=== PATIENT | female | born 1955 | race Caucasian/White ===

== ENCOUNTER 2018-06-11 17:48 | Emergency (ER) | payer BC ==
--- NOTE | 2018-06-11 17:57 | EDM.PDOC ---
ED HPI GENERAL MEDICAL PROBLEM - General Stated Complaint: CHEST DISCOMFORT Time Seen by Provider: 06/11/18 17:48 Source of Information: Reports: Patient, Family History Limitations: Reports: No Limitations - History of Present Illness INITIAL COMMENTS - FREE TEXT/NARRATIVE: 62 y.o.w.f with no previous cardiac Hx was seen in the walk in clinic and transferred to the ed because of C/O chest pain. ECG taken at the clinic showed NSR with out any acte ST/T wave changes. On arrival, the pt c/o of a burning chest pain which goes up to her throat and is worse in supine position. Holding the breath did not make the pain better. Last food intake was at 11 am. Last lipid level check was several years ago and found to be nl. No N/V/D No SOB. However, the patient dizzy in the morning and the pain was radiating to both shoulders radiating nathen to both arms. Those symptoms were lasting several hours , then subsided spontaneously after which the patient decided to go to the walk in clinic. On arrival to the ed, the pt had nonradiating chest pain from her upper abd. to her throat. No diaphoresis!. No SOB, no dizziness. No other acute medical issues. BP 169/79 RR 18 Pulse ox 99% on RA Pulse 81 Temp 36.4 Onset Date: 06/05/18 Onset Time: 06:00 Duration: Hour(s):, Intermittent Location: Reports: Chest, Abdomen Quality: Reports: Burning Severity: Moderate Improves with: Reports: None Worsens with: Reports: None Context: Reports: Other Associated Symptoms: Reports: Chest Pain, Other (felt light headed) Chest Pain Score (Numeric/FACES): 4 - Related Data Allergies Allergy/AdvReac Type Severity Reaction Status Date / Time esomeprazole magnesium Allergy Hives Verified 06/11/18 18:08 [From Nexium] Sulfa (Sulfonamide Allergy Anaphylactic Verified 06/11/18 18:08 Antibiotics) Shock Home Meds: Home Meds Levothyroxine [Synthroid] 88 mcg PO ACBREAKFAST 05/09/15 [History] Past Medical History - Past Health History Medical/Surgical History: Denies Medical/Surgical History Dermatologic History: Reports: Psoriasis - Infectious Disease History Infectious Disease History: Reports: Chicken Pox, Shingles - Past Surgical History HEENT Surgical History: Reports: Cataract Surgery GI Surgical History: Reports: Colonoscopy, Hernia Repair/Other ED ROS GENERAL - Review of Systems Review Of Systems: See Below Constitutional: Reports: No Symptoms HEENT: Reports: No Symptoms Respiratory: Reports: No Symptoms Cardiovascular: Reports: Chest Pain Endocrine: Reports: No Symptoms GI/Abdominal: Reports: No Symptoms : Reports: No Symptoms Musculoskeletal: Reports: Shoulder Pain Skin: Reports: No Symptoms Neurological: Reports: No Symptoms Psychiatric: Reports: No Symptoms Hematologic/Lymphatic: Reports: No Symptoms Immunologic: Reports: No Symptoms ED EXAM, GENERAL - Physical Exam Exam: See Below Exam Limited By: No Limitations General Appearance: Alert, WD/WN, Mild Distress Eye Exam: Bilateral Eye: Normal Inspection Ears: Normal External Exam Ear Exam: Bilateral Ear: Auricle Normal Nose: Normal Inspection, Normal Mucosa, No Blood Throat/Mouth: Normal Inspection, Normal Lips, Normal Voice, No Airway Compromise Head: Atraumatic, Normocephalic Neck: Normal Inspection, Supple, Non-Tender, Full Range of Motion Respiratory/Chest: No Respiratory Distress, Lungs Clear, Normal Breath Sounds, Chest Non-Tender Cardiovascular: Normal Peripheral Pulses, Regular Rate, Rhythm, No Edema, No Murmur, No Rub Peripheral Pulses: 1+: Radial (R) GI/Abdominal: Normal Bowel Sounds, No Organomegaly, Tender (epigastric tenderness) (Female) Exam: Deferred Rectal (Female) Exam: Deferred Back Exam: Normal Inspection, Full Range of Motion Extremities: Normal Inspection, Normal Range of Motion, Non-Tender Neurological: Alert, Oriented, CN II-XII Intact, Normal Cognition, Normal Gait Psychiatric: Normal Affect, Normal Mood Skin Exam: Warm, Dry, Intact, Normal Color, No Rash Lymphatic: No Adenopathy EKG INTERPRETATION EKG Date: 06/11/18 (EKG was taken at he Walk in Clinic) Time: 17:35 Rhythm: NSR Rate (Beats/Min): 92 [place]: Normal P-Wave: Present QRS: Normal ST-T: Normal QT: Normal Comparison: NA - No Prior EKG Course - Vital Signs Text/Narrative:: 62 y.o.w.f with no previous cardiac Hx was seen in the walk in clinic and transferred to the ed because of C/O chest pain. ECG taken at the clinic showed NSR with out any acte ST/T wave changes. On arrival, the pt c/o of a burning chest pain which goes up to her throat and is worse in supine position. Holding the breath did not make the pain better. Last food intake was at 11 am. Last lipid level check was several years ago and found to be nl. No N/V/D No SOB. However, the patient dizzy in the morning and the pain was radiating to both shoulders radiating nathen to both arms. Those symptoms were lasting several hours , then subsided spontaneously after which the patient decided to go to the walk in clinic. On arrival to the ed, the pt had nonradiating chest pain from her upper abd. to her throat. No diaphoresis!. No SOB, no dizziness. No other acute medical issues. BP 169/79 RR 18 Pulse ox 99% on RA Pulse 81 Temp 36.4 PE: WNWD W F with epigastric pain/burning, radiating to her throat. Imaging: CXR 1 view: NAD, official report is pending Labs: CBC, BMP Lipid panel, D Dimer, Lipid panel were all neg Impression: Atypical chest pain DDX: Gastritis/esophagitis Tx: GI cocktail. Pt refused Zofran Reexam: Pt symptoms subsided 100% Plan: D/C with instructions. Last Recorded V/S: Last Vital Signs Temp 36.4 C 06/11/18 17:48 Pulse 73 06/11/18 19:30 Resp 17 06/11/18 19:30 BP 133/74 06/11/18 19:30 Pulse Ox 100 06/11/18 19:30 - Orders/Labs/Meds Orders: Active Orders 24 hr Category Date Time Status Chest 1V Frontal [CR] Stat Exams 06/11/18 18:04 Taken Labs: Laboratory Tests 06/11/18 06/11/18 06/11/18 Range/Units 18:20 18:20 18:20 WBC 6.2 (4.5-12.0) X10-3/uL RBC 4.36 (3.23-5.20) x10(6)uL Hgb 13.8 (11.5-15.5) g/dL Hct 40.8 (30.0-51.3) % MCV 93.5 (80-96) fL MCH 31.7 (27.7-33.6) pg MCHC 33.9 (32.2-35.4) g/dL RDW 11.9 (11.5-15.5) % Plt Count 231 (125-369) X10(3)uL MPV 8.4 (7.4-10.4) fL Neut % (Auto) 69.8 (46-82) % Lymph % (Auto) 22.8 (13-37) % [place] % (Auto) 6.4 (4-12) % Eos % (Auto) 1 (1.0-5.0) % Baso % (Auto) 0 (0-2) % Neut # (Auto) 4.4 (1.6-8.3) # Lymph # (Auto) 1.4 (0.6-5.0) # [place] # (Auto) 0.4 (0.0-1.3) # Eos # (Auto) 0.0 (0.0-0.8) # Baso # (Auto) 0.0 (0.0-0.2) # PT 9.9 (8.7-11.1) INR 1.02 (0.89-1.13) D-Dimer, Quantitative < 0.19 (0.0-0.59) mg/LFEU Sodium 141 (135-145) mmol/L Potassium 3.6 (3.5-5.3) mmol/L Chloride 104 (100-110) mmol/L Carbon Dioxide 28 (21-32) mmol/L BUN 15 (7-18) mg/dL Creatinine 0.8 (0.55-1.02) mg/dL Est Cr Clr Drug Dosing 67.38 mL/min Estimated GFR (MDRD) > 60 (>60) BUN/Creatinine Ratio 18.8 (9-20) Glucose 102 (80-116) mg/dL Calcium 9.3 (8.6-10.2) mg/dL Troponin I (<0.017-0.056) ng/mL Triglycerides (15-150) mg/dL Cholesterol (50-200) mg/dL LDL Cholesterol Direct (60-130) mg/dL HDL Cholesterol (40-75) mg/dL Cholesterol/HDL Ratio (0-5) 06/11/18 06/11/18 Range/Units 18:20 18:20 WBC (4.5-12.0) X10-3/uL RBC (3.23-5.20) x10(6)uL Hgb (11.5-15.5) g/dL Hct (30.0-51.3) % MCV (80-96) fL MCH (27.7-33.6) pg MCHC (32.2-35.4) g/dL RDW (11.5-15.5) % Plt Count (125-369) X10(3)uL MPV (7.4-10.4) fL Neut % (Auto) (46-82) % Lymph % (Auto) (13-37) % [place] % (Auto) (4-12) % Eos % (Auto) (1.0-5.0) % Baso % (Auto) (0-2) % Neut # (Auto) (1.6-8.3) # Lymph # (Auto) (0.6-5.0) # [place] # (Auto) (0.0-1.3) # Eos # (Auto) (0.0-0.8) # Baso # (Auto) (0.0-0.2) # PT (8.7-11.1) INR (0.89-1.13) D-Dimer, Quantitative (0.0-0.59) mg/LFEU Sodium (135-145) mmol/L Potassium (3.5-5.3) mmol/L Chloride (100-110) mmol/L Carbon Dioxide (21-32) mmol/L BUN (7-18) mg/dL Creatinine (0.55-1.02) mg/dL Est Cr Clr Drug Dosing mL/min Estimated GFR (MDRD) (>60) BUN/Creatinine Ratio (9-20) Glucose (80-116) mg/dL Calcium (8.6-10.2) mg/dL Troponin I < 0.017 L (<0.017-0.056) ng/mL Triglycerides 39 (15-150) mg/dL Cholesterol 191 (50-200) mg/dL LDL Cholesterol Direct 100 (60-130) mg/dL HDL Cholesterol 74 (40-75) mg/dL Cholesterol/HDL Ratio 2.6 (0-5) Meds: Medications Discontinued Medications Generic Name Dose Route Start Last Admin Trade Name Freq PRN Reason Stop Dose Admin Al Hydroxide/Mg Hydroxide 15 0 ml 06/11/18 18:20 06/11/18 18:31 ml/ Lidocaine HCl 15 ml PO 06/11/18 18:21 30 ml ONETIME ONE Administration Ondansetron HCl 8 mg 06/11/18 18:04 06/11/18 18:33 Zofran Odt PO 06/11/18 18:05 Not Given ONETIME ONE Ondansetron HCl 8 mg 06/11/18 18:04 06/11/18 18:33 Zofran IVPUSH 06/11/18 18:05 Not Given ONETIME ONE Departure - Departure Time of Disposition: 19:24 Disposition: Home, Self-Care 01 Condition: Good Clinical Impression: Gastritis Qualifiers: Gastritis type: unspecified gastritis Chronicity: acute Gastritis bleeding: without bleeding Qualified Code(s): K29.00 - Acute gastritis without bleeding Instructions: Gastritis, Adult, [id number] Referrals: Charleen Muñoz NP [Primary Care Provider] - Forms: ED Department Discharge Additional Instructions: Please avoid spicy food, ETOH, Coffee, Coke etc. Please take one to two table spoons of Maalox 3 hours after your last meal of the the day, before bed time. Please f/u, come back if your symptoms get worse acutely. - My Orders Last 24 Hours: My Active Orders 06/11/18 18:04 Chest 1V Frontal [CR] Stat - Assessment/Plan Last 24 Hours: My Active Orders 06/11/18 18:04 Chest 1V Frontal [CR] Stat
[2018-06-11] MEDS: Alum Hydroxide/Mag Hydroxide 15 ML, Lidocaine 2% 15 ML PO ONE ×2 (18:31)
[2018-06-11] MEDS: Ondansetron 8 MG Tab.DIS PO ONE (18:33)
[2018-06-11] MEDS: Ondansetron 4 MG/2 ML SDV IVPUSH ONE (18:33)
[2018-06-11 19:31] VITALS: BP 133/74
--- NOTE | 2018-06-12 13:30 | CR ---
INDICATION: Chest pain. CHEST: An AP upright portable view of the chest was obtained 06/11/18 - no comparisons. The heart, mediastinum, and bony thorax were unremarkable. A definite active infiltrate or effusion was not identified. IMPRESSION: No acute process. MTDD
== END 2018-06-11 19:40 | disposition home or self-care (01) ==
LOC: FB.ED 17:48
DX: K29.00 Acute gastritis without bleeding (principal); Z88.2 Allergy status to sulfonamides; Z98.49 Cataract extraction status, unspecified eye
CPT/HCPCS: 36415; 71045; 80048; 80061; 84484; 85025; 85379; 85610; 99283-25; A9270-GY

== ENCOUNTER 2020-01-13 07:58 | Day surgery (SDC) | payer MEDICARE ==
[2020-01-13] MEDS ORDERED: Lidocaine 2% 5 ML SDV INJECT ONE (07:59)
[2020-01-13] MEDS ORDERED: Propofol 200 MG/20 ML SDV IV ONE (07:59)
[2020-01-13] MEDS ORDERED: Midazolam 1 MG/ML 2 ML SDV IV ONE (07:59)
[2020-01-13] MEDS ORDERED: Lactated Ringers 1,000 ML IV SCH (08:00)
[2020-01-13] MEDS ORDERED: Sodium Chloride 0.9% 10 ML Syringe FLUSH PRN (08:00)
--- NOTE | 2020-01-13 09:22 | PCM.OPNOTE ---
- General Post-Op/Procedure Note Date of Surgery/Procedure: 01/13/20 Operative Procedure(s): egd with biopsy Findings: mild gastritis irregular z line Pre Op Diagnosis: epigastric pain. dysphagia. Post-Op Diagnosis: mild gastritis. irregular z line Anesthesia Technique: MAC Primary Surgeon: Laci Benítez Anesthesia Provider: Jennifer Boss Pathology: distal esophagus stomach. Complications: None Condition: Good Free Text/Narrative:: [id number] see dictation.
[2020-01-13 09:57] VITALS: BP 122/67; PULSE 71
--- NOTE | 2020-01-13 18:45 | OR ---
DATE OF OPERATION: 01/13/2020 SURGEON: Laci Benítez MD PROCEDURE PERFORMED: Esophagogastroduodenoscopy with cold forceps biopsy. PREOPERATIVE DIAGNOSIS: History of epigastric abdominal pain and dysphagia. POSTOPERATIVE DIAGNOSIS: Gastritis and an irregular Z-line. INDICATIONS FOR PROCEDURE: This is a 64-year-old white female who is referred with the above-mentioned complaints. She does have a known history of gastritis in the past. However, symptoms have gotten worse recently and she was offered and accepted an upper scope. DESCRIPTION OF PROCEDURE: After an excellent IV sedation was administered, the bite block was inserted. Flexible endoscope was passed without difficulty down the patient's esophagus into her stomach. The stomach was insufflated, scope passed through the pylorus to the second portion of the duodenum and slowly withdrawn. The following findings were noted: Duodenum was unremarkable. Stomach demonstrated some mild irritation in the antrum. Biopsies were taken. Distal esophagus measured at 40 cm. There was an irregular Z-line noted, and circumferential biopsies were taken of the esophagus. The remainder of the esophageal exam was unremarkable. The stomach was deflated, scope was removed. Patient tolerated the procedure well, was taken to Recovery. /[id number] /MODL
== END 2020-01-13 10:05 | disposition home or self-care (01) ==
LOC: FB.SDS 07:58
PROVIDERS: ATTEND Surgery
DX: K29.50 Unspecified chronic gastritis without bleeding (principal); K29.00 Acute gastritis without bleeding; K21.00 Gastro-esophageal reflux disease with esophagitis, without bleeding; K31.89 Other diseases of stomach and duodenum; E03.9 Hypothyroidism, unspecified; Z79.890 Hormone replacement therapy; Z98.890 Other specified postprocedural states; Z79.899 Other long term (current) drug therapy; Z88.8 Allergy status to other drugs, medicaments and biological substances; Z88.2 Allergy status to sulfonamides
CPT/HCPCS: 00731; 43239; 88305; 88313; 88342; J2001; J2250; J2704; J7120

== ENCOUNTER 2020-04-12 19:04 | Emergency (ER) | payer MEDICARE ==
[2020-04-12 19:26] VITALS: PULSE 98
[2020-04-12] MEDS ORDERED: Aspirin 81 MG Tab.Chew PO STA (19:37)
[2020-04-12] MEDS ORDERED: Nitroglycerin 0.4 MG Tab.SL SL ONE (19:41)
[2020-04-12] MEDS ORDERED: Sodium Chloride 0.9% 10 ML Syringe FLUSH PRN (19:45)
[2020-04-12 19:59] VITALS: BP 141/65
[2020-04-12] MEDS ORDERED: Sodium Chloride 0.9% 500 ML IV ONE (20:00)
--- NOTE | 2020-04-12 20:18 | EDM.PDOC ---
ED HPI GENERAL MEDICAL PROBLEM - General Chief Complaint: Chest Pain Stated Complaint: TINGLING ARMS Time Seen by Provider: 04/12/20 19:05 Source of Information: Reports: Patient History Limitations: Reports: No Limitations - History of Present Illness INITIAL COMMENTS - FREE TEXT/NARRATIVE: Patient presented to the ED because of chest pressure which started at 1700. She rate it as 7/10. There is no nausea,vomiting, but c/o dyspnea. She also has numbness and tingling of her left arm. - Related Data Allergies Allergy/AdvReac Type Severity Reaction Status Date / Time esomeprazole [From Nexium] Allergy Hives Verified 01/13/20 08:31 esomeprazole magnesium Allergy Hives Verified 01/13/20 08:31 [From Nexium] Sulfa (Sulfonamide Allergy Anaphylactic Verified 01/13/20 08:31 Antibiotics) Shock Home Meds: Home Meds Levothyroxine [Synthroid] 88 mcg PO ACBREAKFAST 05/09/15 [History] Omeprazole 20 mg PO DAILY 01/12/20 [History] Polymyxin B/Trimethoprim [PolyTrim Ophth Soln] 1 drop EYEBOTH QID PRN 01/12/20 [History] Past Medical History - Past Health History Medical/Surgical History: Denies Medical/Surgical History HEENT History: Reports: Cataract, Impaired Vision Cardiovascular History: Reports: Other (See Below) 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 Respiratory History: Reports: None Gastrointestinal History: Reports: Colon Polyp, GERD Genitourinary History: Reports: None 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: Musculoskeletal History: Reports: Other (See Below) Other Musculoskeletal History: OSTEOPENIA OF NECK OF LEFT FEMUR Neurological History: Reports: None Psychiatric History: Reports: None Endocrine/Metabolic History: Reports: Hypothyroidism Hematologic History: Reports: None Immunologic History: Reports: None Oncologic (Cancer) History: Reports: None Dermatologic History: Reports: Psoriasis - Infectious Disease History Infectious Disease History: Reports: Chicken Pox, Shingles - Past Surgical History Head Surgeries/Procedures: Reports: None HEENT Surgical History: Reports: Cataract Surgery Respiratory Surgical History: Reports: None GI Surgical History: Reports: Colonoscopy, Hernia Repair/Other Female Surgical History: Reports: None Endocrine Surgical History: Reports: None Neurological Surgical History: Reports: None Musculoskeletal Surgical History: Reports: None Oncologic Surgical History: Reports: None Social & Family History - Family History Family Medical History: No Pertinent Family History - Tobacco Use Tobacco Use Status *Q: Never Tobacco User Second Hand Smoke Exposure: No - Caffeine Use Caffeine Use: Reports: Coffee, Tea - Recreational Drug Use Recreational Drug Use: No ED ROS GENERAL - Review of Systems Review Of Systems: See Below Constitutional: Reports: No Symptoms HEENT: Reports: No Symptoms Respiratory: Reports: Shortness of Breath Cardiovascular: Reports: Chest Pain Endocrine: Reports: No Symptoms GI/Abdominal: Reports: No Symptoms : Reports: No Symptoms Musculoskeletal: Reports: No Symptoms Skin: Reports: No Symptoms Neurological: Reports: Numbness, Tingling Psychiatric: Reports: No Symptoms Hematologic/Lymphatic: Reports: No Symptoms ED EXAM, GENERAL - Physical Exam Exam: See Below Exam Limited By: No Limitations General Appearance: Alert, No Apparent Distress Eye Exam: Bilateral Eye: PERRL Ears: Normal External Exam, Normal Canal Nose: Normal Inspection, Normal Mucosa Throat/Mouth: Normal Inspection, Normal Lips, Normal Teeth Head: Atraumatic, Normocephalic Neck: Normal Inspection, Supple, Non-Tender, Full Range of Motion Respiratory/Chest: No Respiratory Distress, Lungs Clear, Normal Breath Sounds Cardiovascular: Normal Peripheral Pulses, Regular Rate, Rhythm, No Edema, No Gallop, No JVD, No Murmur, No Rub GI/Abdominal: Normal Bowel Sounds, Soft, Non-Tender, No Organomegaly, No Distention, No Abnormal Bruit, No Mass Back Exam: Normal Inspection, Full Range of Motion Extremities: Normal Inspection, Normal Range of Motion, Non-Tender Neurological: Alert, Oriented, CN II-XII Intact, Normal Cognition, Normal Gait, Normal Reflexes, No Motor/Sensory Deficits Psychiatric: Normal Affect Skin Exam: Warm, Dry, Intact, No Rash Course - Vital Signs Text/Narrative:: Labs/EKG was discussed with patient ASA 324 mg po x1 NTG 0.4 mg SL and the chest pressure completely resolved Last Recorded V/S: Last Vital Signs Temp 36.5 C 04/12/20 19:05 Pulse 98 04/12/20 19:05 Resp 17 04/12/20 19:05 BP 141/65 H 04/12/20 19:47 Pulse Ox 100 04/12/20 19:05 - Orders/Labs/Meds Orders: Active Orders 24 hr Category Date Time Status Saline Lock Insert [OM.PC] Routine Oth 04/12/20 19:45 Ordered EKG 12 Lead [EK] Routine Ther 04/12/20 19:05 Ordered EKG 12 Lead [EK] Routine Ther 04/12/20 19:37 Ordered Labs: Laboratory Tests 04/12/20 04/12/20 04/12/20 Range/Units 19:45 19:45 19:45 WBC 5.8 (3.0-10.3) x10-3/uL RBC 4.37 (3.60-5.20) x10(6)uL Hgb 13.6 (11.4-15.5) g/dL Hct 41.4 (34.2-48.2) % MCV 94.6 (76.7-100.5) fL MCH 31.0 (23.9-33.9) pg MCHC 32.8 (31.9-34.8) g/dL RDW 12.9 (12.3-16.5) % Plt Count 232 (151-488) x10(3)uL MPV 8.6 (7.1-12.4) fL Neut % (Auto) 59.3 (30.8-76.2) % Lymph % (Auto) 31.7 (18.4-52.1) % [place] % (Auto) 7.7 (4.4-15.7) % Eos % (Auto) 1.0 (0.6-8.1) % Baso % (Auto) 0.3 (0.2-1.5) % Neut # (Auto) 3.4 (1.5-6.3) x10-3/uL Lymph # (Auto) 1.8 (1.0-4.4) x10-3/uL [place] # (Auto) 0.4 (0.3-1.0) x10-3/uL Eos # (Auto) 0.1 (0.0-0.8) x10-3/uL Baso # (Auto) 0.0 (0.0-0.1) x10-3/uL Sodium 139 (135-145) mmol/L Potassium 3.5 (3.5-5.3) mmol/L Chloride 101 (100-110) mmol/L Carbon Dioxide 26 (21-32) mmol/L BUN 17 (7-18) mg/dL Creatinine 0.9 (0.55-1.02) mg/dL Est Cr Clr Drug Dosing TNP Estimated GFR (MDRD) > 60 (>60) BUN/Creatinine Ratio 18.9 (9-20) Glucose 101 (80-116) mg/dL Calcium 9.1 (8.6-10.2) mg/dL Total Bilirubin 0.3 (0.1-1.3) mg/dL AST 17 (5-25) IU/L ALT 27 (12-36) U/L Alkaline Phosphatase 106 (56-112) IU/L Troponin I 5.3 (4.0-60.3) pg/mL Total Protein 7.6 (6.0-8.0) g/dL Albumin 4.4 (3.2-4.6) g/dL Globulin 3.2 g/dL Albumin/Globulin Ratio 1.4 Meds: Medications Discontinued Medications Generic Name Dose Route Start Last Admin Trade Name Freq PRN Reason Stop Dose Admin Aspirin 324 mg 04/12/20 19:37 04/12/20 19:44 Aspirin PO 04/12/20 19:38 324 mg NOW STA Administration Sodium Chloride 500 mls @ 999 mls/hr 04/12/20 20:00 04/12/20 20:01 Normal Saline IV 04/12/20 20:30 999 mls/hr .BOLUS ONE Administration Nitroglycerin 0.4 mg 04/12/20 19:41 04/12/20 19:47 Nitrostat SL 04/12/20 19:42 0.4 mg ONETIME ONE Administration Sodium Chloride 10 ml 04/12/20 19:45 04/12/20 19:58 Saline Flush FLUSH 10 ml ASDIRECTED PRN Administration Keep Vein Open Departure - Departure Time of Disposition: 20:35 Disposition: Home, Self-Care 01 Condition: Good Clinical Impression: Atypical chest pain, Cervical disc disease Instructions: Nonspecific Chest Pain, Adult, [id number], Degenerative Disk Disease Referrals: Opal Downing CHEMICAL LABORATORY ASSISTANT [Primary Care Provider] - Forms: ED Department Discharge Additional Instructions: Please read discharge instructions on atypical chest pain and cervical disc disease Follow up with your doctor regarding the disc problem on your neck Sepsis Event Note (ED) - Evaluation Sepsis Screening Result: No Definite Risk - Focused Exam Vital Signs: Vital Signs Temp Pulse Resp BP BP Pulse Ox 04/12/20 19:47 141/65 H 03/02/21 19:05 36.5 C 98 17 159/81 H 100 - My Orders Last 24 Hours: My Active Orders 04/12/20 19:05 EKG 12 Lead [EK] Routine 04/12/20 19:37 EKG 12 Lead [EK] Routine 04/12/20 19:45 Saline Lock Insert [OM.PC] Routine - Assessment/Plan Last 24 Hours: My Active Orders 04/12/20 19:05 EKG 12 Lead [EK] Routine 04/12/20 19:37 EKG 12 Lead [EK] Routine 04/12/20 19:45 Saline Lock Insert [OM.PC] Routine
== END 2020-04-12 20:45 | disposition home or self-care (01) ==
LOC: FB.ED 19:04
DX: R07.89 Other chest pain (principal); M50.90 Cervical disc disorder, unspecified, unspecified cervical region; E03.9 Hypothyroidism, unspecified; K21.9 Gastro-esophageal reflux disease without esophagitis; Z88.8 Allergy status to other drugs, medicaments and biological substances; Z88.2 Allergy status to sulfonamides; Z79.899 Other long term (current) drug therapy
CPT/HCPCS: 36415; 80053; 84484; 85025; 93005; 99283; 99285-25; A9270-GY; J7040

== ENCOUNTER 2022-10-08 17:51 | Emergency (ER) | payer MEDICARE ==
[2022-10-08] MEDS ORDERED: Sodium Chloride 0.9% 10 ML Syringe FLUSH PRN ×2 (18:38→20:10)
[2022-10-08] MEDS ORDERED: Labetalol 20 MG/4 ML Syringe IVPUSH ONE (18:38)
[2022-10-08] MEDS ORDERED: amLODIPine 5 MG Tab PO ONE (18:38)
[2022-10-08] MEDS ORDERED: Sodium Chloride 0.9% 1,000 ML IV ONE (18:45)
[2022-10-08] MEDS ORDERED: Sodium Chloride 0.9% 1,000 ML IV SCH (18:45)
[2022-10-08 20:26] LABS: BILIRUBIN,URINE NEGATIVE (NEGATIVE); GLUCOSE,URINE NORMAL (NORMAL); KETONES,URINE NEGATIVE (NEGATIVE); LEUKOCYTE ESTERASE,URINE NEGATIVE (NEGATIVE); NITRITE,URINE NEGATIVE (NEGATIVE); OCCULT BLOOD,URINE NEGATIVE (NEGATIVE); PROTEIN,URINE NEGATIVE (NEGATIVE); UROBILINOGEN,URINE NORMAL (NEGATIVE)
[2022-10-08 20:32] LABS: APPEARANCE,URINE CLEAR (CLEAR); BACTERIA,URINE OCCASIONAL (NS); COLOR,URINE YELLOW (YELLOW); RBC,URINE 0-5 (0-5); SQUAMOUS EPITHELIAL CELLS,UR OCCASIONAL (NS,R,O); WBC,URINE 0-5 (0-5)
[2022-10-08] MEDS ORDERED: Potassium Chloride 20 MEQ Tab.ER PO ONE (21:01)
[2022-10-08 21:12] VITALS: BP 140/76; PULSE 74
== END 2022-10-08 21:22 | disposition home or self-care (01) ==
LOC: FB.ED 17:51
DX: E86.0 Dehydration (principal); E87.1 Hypo-osmolality and hyponatremia; E87.6 Hypokalemia; Z86.16 Personal history of COVID-19; E03.9 Hypothyroidism, unspecified; Z88.2 Allergy status to sulfonamides; Z88.0 Allergy status to penicillin; Z91.048 Other nonmedicinal substance allergy status
CPT/HCPCS: 70450; 81001; 96360; 99284; A9270; J7030